=== PATIENT | female | born 1970 | race Caucasian/White ===

== ENCOUNTER 2018-09-03 03:02 | Emergency (ER) | payer SELFPAY ==
[~2018-09-03] VITALS: Wt 149.6 kg
[~2018-09-03 03:02] MED LIST: DENIES
[2018-09-03] MEDS ORDERED: DIPHENHYDRAMINE 50 MG CAP PO ONE (04:00)
[2018-09-03] MEDS ORDERED: NICARDipine HCL 30 MG CAPSULE PO ONE (04:00)
[2018-09-03] MEDS ORDERED: HYDR-842 PO (05:05)
--- NOTE | 2018-09-03 05:09 | ERD ---
ER Documentation Chief Complaint Chief Complaint L EYE SWELLING X'S 2 HRS HPI During the patient's encounter translation services were utilized Language: [Setswana] Source: [Family] 48-year-old female with remote history of -induced hypertension who presents to the emergency room with approximately 2 hours of periorbital swelling to the left eyelid upper and lower. The patient denies any new medications or detergents. She woke up with the swelling. She denies any eye pain or pain with extraocular movements. No fevers or chills. Blood pressure was noted to be significantly elevated with the patient denies any headache chest pain or shortness of breath. Patient does have a remote history of -induced hypertension but has been checked afterwards and does not have a diagnosis of essential hypertension. Blood pressure is usually normal. Patient does describe anxiety of being in the emergency room. ROS All systems reviewed and are negative except as per history of present illness. Medications Home Meds Active Scripts Hydroxyzine Hcl* (Atarax*) 25 Mg Tab, 25 MG PO Q6H PRN for eye swelling, #20 TAB Prov:BARBRA MOSQUERA MD 09/03/18 Reported Medications [Denies] No Conflict Check 01/28/10 Allergies Allergies: Coded Allergies: No Known Allergy (Verified Allergy, Unknown, NA, 01/28/10) PMhx/Soc History of Surgery: Yes () Hx Neurological Disorder: No Hx Respiratory Disorders: No Hx Cardiac Disorders: No Hx Psychiatric Problems: No Hx Miscellaneous Medical Probl: No Hx Alcohol Use: No Hx Substance Use: No Hx Tobacco Use: No Smoking Status: Never smoker FmHx Family History: No diabetes Physical Exam Vitals Vital Signs Date Temp Pulse Resp B/P (MAP) Pulse Ox O2 O2 Flow FiO2 Time Delivery Rate 09/03/18 99.0 79 20 190/103 98 Room Air 05:01 (132) 09/03/18 99.0 124 20 281/150 94 03:07 (193) Physical Exam General: Well developed, well nourished, no acute distress Head: Normocephalic, atraumatic. Eyes: Pupils equally reactive, EOM intact, periorbital edema to the upper and lower eyelids of the left eye without erythema warmth or tenderness. The patient's extraocular movements are intact without proptosis. No deformities or step-offs to the periorbital rims. ENT: Moist mucous membranes Neck: Supple, no lymphadenopathy Respiratory: Lungs clear bilaterally, no distress Cardiovascular: RRR, no murmurs, rubs, or gallops Abdominal: Soft, non-tender, non-distended, no peritoneal signs : Deferred MSK: No edema, no unilateral swelling, 5/5 strength Neurologic: Alert and oriented, moving all extremities, normal speech, no focal weakness, no cerebellar signs Skin: No rash Psych: Normal mood Results 24 hrs Current Medications Medications Dose Sig/Harriet Start Time Status Last (Trade) Ordered Route PRN Stop Time Admin Dose Reason Admin 50 mg ONCE ONCE 09/03/18 DC 09/03/18 Diphenhydrami PO 04:00 04:07 ne HCl 09/03/18 04:01 (Benadryl) Nicardipine 30 mg ONCE ONCE 09/03/18 DC 09/03/18 HCl PO 04:00 04:07 (Cardene) 09/03/18 04:01 Procedures/MDM MEDICAL DECISION MAKING: The patient's periorbital edema is likely inflammatory versus allergic. The patient has no clear trigger. No signs or symptoms concerning for preseptal or septal cellulitis. I do not believe this is consistent with blepharitis. Patient can be treated with antihistamines. No indication for steroids. The patient's blood pressure was noted to be significantly elevated. The patient does have a remote history of -induced hypertension she has checked her blood pressure fairly regularly and does not have a diagnosis of essential hypertension. Consider white coat hypertension however this is significantly elevated. She exhibits no signs or symptoms concerning for endorgan dysfunction. Patient states that she actually feels quite fine. However I do believe that blood pressure reduction would be most appropriate given high risk for complications at this level. ER COURSE: * Patient was given p.o. Cardene with appropriate reduction of blood pressure less than 200. The patient remains a symptom medic and be safely discharged. The patient was advised to have blood pressure recheck with primary care physician in the next several days to evaluate for essential hypertension. * Periorbital edema has decreased during observation and with antihistamine. CONSULTATION: None DISPOSITION PLAN: The patient does not have an identifiable emergent medical condition that warrants inpatient hospitalization at this time. The patient is deemed safe for discharge with outpatient follow-up. We discussed follow up with the patient's primary care doctor within 24 to 48 hours as needed. We also discussed return to the emergency room for worsening symptoms or worsening condition. Outpatient referral: None required Discharge Medications: Atarax Departure Diagnosis: Primary Impression: Periorbital edema Additional Impression: Asymptomatic hypertensive urgency Condition: Stable Patient Instructions: Hypertension, To Be Confirmed [facility] Usted se perez hecho un examen mdico de control que le indica que no est en lilly condicin que requiera tratamiento urgente en el Departamento de Emergencia. Un estudio ms profundo y el tratamiento de henry condicin pueden esperar sin ningn riesgo hasta que usted sea atendida/o en el consultorio de henry mdico o lilly clnica. Es responsabilidad suya arreglar lilly emeterio para el seguimiento del renan. MANEJO DE CONDICIONES NO URGENTES EN EL FUTURO 1) Si usted tiene un mdico de atencin primaria: Usted debera llamar a henry mdico de atencin primaria antes de venir al departamento de emergencia. Despus de las horas de consultorio, herny doctor o henry asociado/a est disponible por telfono. El mdico o enfermero de sam en el servicio telefnico puede asesorarle por ashley medio para atender el problema, o renan contrario se puede programar illly emeterio. 2) Si usted no tiene un mdico de atencin primaria: Llame al mdico o clnica de referencia que aparece abajo gerardo las horas de consultorio para hacer lilly emeterio para que le vean. CLINICAS: [facility] [phone] [facility] [phone] [facility] [phone] [facility] [phone] [facility] [phone] [facility] [phone] [address] [facility]. [facility] () Hyun se perez hecho un examen mdico de control que le indica que no est en lilly condicin que requiera tratamiento urgente en el Departamento de Emergencia. Un estudio ms profundo y el tratamiento de henry condicin pueden esperar sin ningn riesgo hasta que usted sea atendida/o en el consultorio de henry mdico o lilly clnica. Es responsabilidad suya arreglar lilly emeterio para el seguimiento del renan. MANEJO DE CONDICIONES NO URGENTES EN EL FUTURO 1) Si usted tiene un mdico de atencin primaria: ted debera llamar a henry mdico de atencin primaria antes de venir al departamento de emergencia. Despus de las horas de consultorio, henry doctor o henry asociado/a est disponible por telfono. El mdico o enfermero de sam en el servicio telefnico puede asesorarle por ashley medio para atender el problema, o renan contrario se puede programar lilly emeterio. 2) Si usted no tiene un mdico de atencin primaria: Llame al mdico o condado institucions de referencia que aparece abajo gerardo las horas de consultorio para hacer lilly emeterio para que le vean. SI USTED NO PUEDE PAGAR PARA LEONARD UN MEDICO puede ir a: [facility] [address] [place] [address] [facility] [address] [place] [address] [facility] [address] [place] [address] [facility] [address] [place] [place], [place] [id number] Additional Instructions: Llame al doctor MAANA y ander lilly EMETERIO PARA DENTRO DE 2-3 MATUTE.Dgale a la secretaria que nosotros le instruimos hacer esta emeterio.Avise o llame si henry condicin se empeora antes de la emeterio. Regresa aqui si peor o no mejor. BARBRA MOSQUERA MD Sep 03, 2018 05:09
[2018-09-03 05:24] VITALS: BP 180/100; PULSE 81; RESP 20
== END 2018-09-03 05:31 | disposition home or self-care (01) ==
LOC: E/R 03:02
DX: H02.844 Edema of left upper eyelid (principal); I10 Essential (primary) hypertension; H02.845 Edema of left lower eyelid
CPT/HCPCS: 99283